=== PATIENT | female | born 1970 | race Caucasian/White ===

== ENCOUNTER 2023-10-27 08:24 | Emergency (ER) | payer OTHER, SELFPAY ==
--- NOTE | ~2023-10-27 | XR_ITS ---
EXAMINATION: XR foot LT min 3V DATE: 10/27/2023 08:54 INDICATION: Left foot injury. TECHNIQUE: 4 views of left foot were obtained. COMPARISON: None. FINDINGS: There is mild hallux valgus. No fracture. There is mild osteoarthritis of first metatarsoph alangeal joint and some of the interphalangeal joints. IMPRESSION: 1. Mild hallux valgus. 2. Mild polyarticular osteoarthritis. Reviewed, dictated and finalized at location A.
[2023-10-27 08:40] VITALS: PULSE 108; RESP 16; TEMP 36.6; O2SAT 100
--- NOTE | 2023-10-27 08:42 | ED.LOWEXIN ---
HPI - Extremity Injury (Lower) General Chief Complaint: Extremity Injury, Lower Stated Complaint: Fall Injury/Left Foot Time Seen by Provider: 10/27/23 08:52 Source: patient, RN notes reviewed and old records reviewed Mode of arrival: ambulatory Limitations: no limitations History of Present Illness HPI Narrative: 53 year old female who presents to [facility] with complaints of pain to her left foot which started this morning when she was trying to get in the car to go to work and the graduate research assistant was close to her car door. Patient proceeded to try to get into car and tripped over blower on side of graduate research assistant and fell. Patient reports that she heard a pop to left foot with pain to the medial and top of left foot at the base of toe region. Patient has no bruising or any acute swelling to her left foot,no obvious deformity. MD complaint: foot injury (left) Onset (ago): hour(s) (this morning) Injury: Left: foot Type of Injury: other (tripped and fell) Place: home Severity scale (1-10): 6 Related Data Home Medications Medication Instructions Recorded Confirmed BuSpar 10/27/23 venlafaxine 150 mg mg PO 10/27/23 capsule,extended release 24 hr Allergies Allergy/AdvReac Type Severity Reaction Status Date / Time No Known Allergies Allergy Unverified 10/28/16 17:59 Review of Systems Review of Systems: CONSTITUTIONAL: Denies fever, chills, or sweats. EYES: Denies visual changes, redness, or discharge. ENT: Denies rhinorrhea, congestion, sore throat, or otalgia. CARDIOVASCULAR: Denies chest pain, palpitations, or edema. RESPIRATORY: Denies cough or dyspnea. GASTROINTESTINAL: Denies abdominal pain, nausea, vomiting, or diarrhea. GENITOURINARY: Denies dysuria or hematuria. SKIN: Denies rash or itching. MUSCULOSKELETAL: Denies back pain,reports pain to the top and medial aspect of her left foot, or myalgia. NEUROLOGIC: Denies headache, numbness, or weakness. PSYCHIATRIC: Positive for history of anxiety or depression. All systems reviewed & are unremarkable except as noted in HPI and below PMFSH Past Medical History Medical History (Updated 10/28/23 @ 08:10 by Alma Delia Contreras NP) Anxiety and depression Surgical History Surgical History (Updated 10/27/23 @ 09:14 by Alma Delia Contreras NP) H/O: hysterectomy History of back surgery Social History Social History (Updated 10/27/23 @ 09:16 by Alma Delia Contreras NP) Smoking packs per day: 0.5 Smoking cigarettes per day: 10.0 Years smoked: 32 Smoking pack-years: 16.00 Smoking status: Current every day smoker Alcohol intake: current Alcohol use details: social Substance use type: does not use Living arrangements: with family Gender identity (if verbalized by the patient): Female Comments At time of signature, agree with nursing past medical, surgical, social and family history. There is no relevant family history pertinent to the presenting complaint Exam Narrative: GENERAL: Well-appearing, well-nourished, and in no acute distress. HEAD: Normocephalic, atraumatic. EYES: PERRLA and EOMI. ENT: Nares clear, no rhinorrhea or epistaxis. Mucous membranes moist.TMs normal throat pink with no swelling NECK: Supple.no lymphadenopathy CHEST: Clear to auscultation. No respiratory distress.SAO2 100% on room air HEART: Regular rate and rhythm. No murmur heard. Normal peripheral pulses. ABDOMEN: Soft, nontender, nondistended, normal active bowel sounds. EXTREMITIES: Normal range of motion. No edema. Pain to the medial and top of left foot at base of toes, no acute swelling or bruising noted. strong left foot pedal pulse present, foot warm and pink no obvious deformity noted, sensation is intact SKIN: Warm, dry, no rash. NEURO: No focal deficits. Alert and oriented x3. Course Course Emergency Course: Patient is aware of diagnosis, understands and agrees to treatment plan.? Anticipatory guidance given.? Patient agrees to follow-up as directed and i
[2023-10-27 09:08] VITALS: BP 147/90
== END 2023-10-27 09:29 | disposition home or self-care (01) ==
PROVIDERS: Emergency Provider Registered Nurse
DX: S93.602A Unspecified sprain of left foot, initial encounter (principal); W18.09XA Striking against other object with subsequent fall, initial encounter
CPT/HCPCS: 73630; 99203; G0463

== ENCOUNTER 2023-11-10 14:09 | Outpatient (CLI) | payer OTHER, SELFPAY ==
--- NOTE | ~2023-11-10 | MR_ITS ---
EXAMINATION: MR foot LT wo con DATE: 11/10/2023 14:44 INDICATION: Left foot pain TECHNIQUE: Magnetic resonance imaging (MRI) of the left fore/mid foot was performed without intraveno us contrast. Sequences included sagittal T1-weighted FSE, sagittal fluid sensitive FSE STIR, coronal PD-weighted FS FSE, coronal T1-weighted FSE, axial PD-weighted FS FSE, and axial PD-weighted FSE. COMPARISON: Left foot radiographs dated 10/27/2023 FINDINGS: 22 degrees hallux valgus. There is marrow edema surrounding a minimally distracted avulsion fracture involving the plantar lateral side of the medial cuneiform involving the footplate of the plantar com ponent of the Lisfranc ligament complex. There is a tear of the dorsal component of the ligament comp jaspreet. There is additional marrow edema surrounding a linear low signal intensity nondisplaced trabecul ar fracture line at the distal/lateral aspect of the cuboid underlying the distal articular surface c onsistent with an likely nutcracker type axial compression injury. On the sagittal images there appea rs to be intra-articular extension of fracture with up to 1 mm step-off along the articular cortex. L ikely additional nondisplaced fracture, potentially intra-articular involving the plantar base of the second metatarsal with marrow edema and apparent T2 hyperintense linear fracture line along the plan tar/medial cortex on the coronal series 8, images 31-33. There is additional mild marrow edema withou t evident fracture lines involving the lateral cuneiform. There is no evident subluxation of the meta tarsals along the Lisfranc joint. There is mild osteoarthritis at the first metatarsophalangeal and a few tarsal metatarsal and interphalangeal joints. Visualized portion of the flexor and extensor tend ons are normal. The collateral ligament complexes at the metatarsophalangeal and interphalangeal join ts are normal. There is diffuse soft tissue edema throughout the mid and forefoot. Intrinsic musculat ure is otherwise unremarkable. IMPRESSION: 1. Lisfranc ligament injury with tear of the dorsal component of the ligament and avulsion fracture i nvolving the medial cuneiform footplate of the plantar component of the ligament. No evident associat ed subluxation along the Lisfranc joint line 2. Nondisplaced intra-articular fracture at the lateral aspect of the distal articular surface of the cuboid. 3. Nondisplaced fracture, potentially intra-articular at the plantar base of the second metatarsal. Reviewed, dictated and finalized at location A. IMPRESSION: 1. Lisfranc ligament injury with tear of the dorsal component of the ligament a nd avulsion fracture involving the medial cuneiform footplate of the plantar co mponent of the ligament. No evident associated subluxation along the Lisfranc j oint line 2. Nondisplaced intra-articular fracture at the lateral aspect of the distal ar ticular surface of the cuboid. 3. Nondisplaced fracture, potentially intra-articular at the plantar base of th e second metatarsal.
== END 2023-11-10 14:10 ==
LOC: GOSHIMG 14:10
PROVIDERS: PCP Family Medicine; Visit Provider Family Medicine
DX: S92.242A Displaced fracture of medial cuneiform of left foot, initial encounter for closed fracture (principal); S92.215A Nondisplaced fracture of cuboid bone of left foot, initial encounter for closed fracture; S92.325A Nondisplaced fracture of second metatarsal bone, left foot, initial encounter for closed fracture; S93.622A Sprain of tarsometatarsal ligament of left foot, initial encounter; X58.XXXA Exposure to other specified factors, initial encounter
CPT/HCPCS: 73718

== ENCOUNTER 2023-11-15 10:55 | Outpatient (CLI) | payer OTHER, SELFPAY ==
--- NOTE | 2023-11-15 11:05 | ECG_ITS ---
SEE SCANNED COPY FOR CONFIRMED REPORT MTDD
== END 2023-11-15 10:56 | disposition home or self-care (01) ==
LOC: ANHCARD 10:56
PROVIDERS: PCP Family Medicine; Visit Provider Anesthesiology
DX: Z01.818 Encounter for other preprocedural examination (principal); E78.00 Pure hypercholesterolemia, unspecified
CPT/HCPCS: 93005

== ENCOUNTER 2023-11-17 03:51 | Day surgery (SDC) | payer OTHER, SELFPAY ==
[2023-11-14 10:51] VITALS: BMI 28.5
--- NOTE | 2023-11-14 11:09 | PC.NURSE ---
Report to the Outpatient Waiting Room, entrance under the green pavilion located off [facility], at time ___6:00AM____ on date __11/17/23 . Planned Procedure Time: __7:30AM . Time changes happen often and if your time is changed the preop area will call you the afternoon before. - You and your visitor will be asked to self-screen and do not enter if you have any COVID symptoms. - A mask is optional within the hospital at this time. Patients may have clear liquids (water, carbonated beverages, clear teas, apple juice) until 3 hours prior to surgery with a maximum of 20 ounces. - No food from midnight until time of surgery. Take the following medications with a SIP of water the morning of surgery: BUSPIRONE, VALACYCLOVIR, VENLAFAXINE. MAY TAKE ALPROZOLAM NEEDED. DO NOT STOP ANY OF YOUR OTHER PRESCRIPTION MEDICATIONS PRIOR TO SURGERY ?EXCEPT THE FOLLOWING Medications to discontinue per physician ____NONE Please no make-up, nail yoruba, hairspray, perfume, deodorant, or body powder the day of surgery. No jewelry (including any body piercings) or valuables the day of surgery, leave them at home. Please take a shower or bath the night before, or the morning of, surgery with an antibacterial soap. Wear comfortable, loose fitting clothing. - Jewelry must be removed prior to entering the operating room. Rings and piercings that are not removed may be cut off. - The hospital will not accept responsibility for valuables. - Please leave all valuables, including medications, at home the day of surgery. If you are going home after surgery, a licensed public transit trolley driver must drive you home. - NO public transportation without another adult if you receive anesthesia. - We recommend that an adult stay with you for 24 hours following discharge. - We also recommend that you do not drive, make important decision, drink alcoholic beverages, or take any drugs that were not prescribed by your health care provider for at least 24 hours after your discharge time. Follow any additional instructions given to you from your surgeon. If you or anyone in your household have experienced Covid symptoms in the past week, please notify your surgeon or the nurse liaison at the phone number below for possible testing. Telephone instructions given to ____PATIENT and asked if any additional questions and then verbalized understanding. Patient advised to call surgeon office or pre surgery nurse liaison [phone] if any additional questions.
[2023-11-17] VITALS (7 sets, daily range): BP systolic 109–134; BP diastolic 43–67; PULSE 84–104; RESP 14–26; TEMP 36.1–36.6; O2SAT 93–100
--- NOTE | ~2023-11-17 | XR_ITS ---
XR surgery orthopedic Indication: Intraoperative fixation of Lisfranc fracture TECHNIQUE: Fluoroscopy used during Intraoperative fixation of Lisfranc fracture performed by [Leonel Richardson MD] on 11/17/2023. 1 minute 9 seconds fluoroscopy with 6 fluoroscopic images captured. FINDINGS: Correlate with procedure note. IMPRESSION: Fluoroscopy used during Intraoperative fixation of Lisfranc fracture. Reviewed, dictated and finalized at location B. IMPRESSION: Fluoroscopy used during Intraoperative fixation of Lisfranc fractur e.
--- NOTE | 2023-11-17 07:07 | WPDANESEPPF ---
Anes - Initial Pre Proc Eval Procedure: Operation Date: 11/17/23 07:30 Proposed Procedures p Open Reduction Internal Fixation Left Foot Lisfranc Fracture - Omid Richardson MD Date/Time: 11/17/23 07:07 Surgeon: Omid Richardson MD Pre Op Diagnosis: left foot lis franc injury Patient Data Age: 53 Gender: F Height: 1.59 m Weight: 72 kg Allergies Allergy/AdvReac Type Severity Reaction Status Date / Time No Known Allergies Allergy Unverified 11/14/23 10:49 Home Medications Medication Instructions Recorded Confirmed Type venlafaxine 150 mg 150 mg PO QAM 10/27/23 11/14/23 History capsule,extended release 24 hr alprazolam 0.5 mg tablet (Xanax) 0.5 mg PO DAILY PRN Anxiety 11/12/23 11/14/23 History atorvastatin 10 mg tablet (Lipitor) 10 mg PO DAILY 11/12/23 11/14/23 History buspirone 15 mg tablet 15 mg PO QAM 11/12/23 11/14/23 History trazodone 100 mg tablet 100 mg PO QHS PRN Insomnia 11/12/23 11/14/23 History valacyclovir 500 mg tablet 500 mg PO DAILY 11/12/23 11/14/23 History Patient hx anesthesia problems: none Family hx anesthesia problems: none Results Review: All pre-operative results and documents have been reviewed as part of the pre-operative evaluation. [facility] Past Medical History Medical History (Updated 11/12/23 @ 14:01 by Omid Richardson MD) Anxiety and depression Lisfranc fracture Surgical History Surgical History H/O: hysterectomy History of back surgery Family History Family History Unknown Hypertension Heart disease Diabetes mellitus Social History Social History Social History: caffeine use Smoking packs per day: 1 Smoking cigarettes per day: 20.0 Years smoked: 34 Smoking pack-years: 34.00 Smoking status: Current every day smoker Tobacco type: cigarettes Alcohol intake: current Drinks per week: 4 Alcohol use details: social Substance use type: does not use Living arrangements: with family Additional living arrangements comments: [facility] Occupation/Education: occupation Additional occupation/education comments: RN [employer] Gender identity (if verbalized by the patient): Female Spiritual care concerns: No Anes - Eval Final PreProcedure Day of Procedure 11/17/23 07:07 Patient weight: normal Heart: regular rate and rhythm Lungs: clear to auscultation Airway: Mallampati scale class II Neurological: alert and oriented Last oral intake: >/= 8 hours ASA classification: II Emergent: no Anesthetic plan: proceed Anesthesia type and monitoring: general LMA and standard monitoring Results Review: All pre-operative results and documents have been reviewed as part of the pre-operative evaluation. Informed Consent: The patient's anesthetic plan and its attendant risks and benefits were discussed with the patient/family/POA. Questions were solicited and answers provided to the satisfaction of the patient/family/POA.
[2023-11-17] MEDS: KETOROLAC 15 MG/ML VIAL (*BKC) IV PUSH (07:10)
[2023-11-17] MEDS: LACTATED RINGERS 1,000 ML 30 ML IV CONT (07:10)
[2023-11-17] MEDS: ACETAMINOPHEN 500 MG TABLET 1000 MG PO (07:10)
--- NOTE | 2023-11-17 07:19 | WPDHPUPDATE1 ---
History and Physical Update Update Date/Time: 11/17/23 07:19 History and Physical has been reviewed, including an updated exam of the patient. There are NO changes in the patient's condition. Risks, benefits, and alternatives have been discussed and questions answered. Patient agrees to proceed with procedure.
--- NOTE | 2023-11-17 07:32 | P.OP_ITS ---
Procedure Note - Detailed Date of Procedure 11/17/23 Pre-op Diagnosis left foot lis franc injury Post-op Diagnosis Same Procedure Performed ORIF LT foot Lisfranc fx Surgeon Omid Richardson MD Chest Painting And Sealing Supervisor 1st assist Anesthesia General Indications 53-year-old who sustained if injury to the left foot and demonstrated Lisfranc fracture dislocation. Conservative treatment to allow for swelling to subside and now presents for operative treatment. Description of Procedure Patient identified in the preoperative holding. Informed consent given. Operative extremity marked. Patient received intravenous antibiotics. Patient brought to the operating room where underwent general anesthetic by anesthesia team. Positioned supine on operating room table. Time-out performed confirming the patient, site of the surgery and the plan. Left foot prepped draped usual sterile surgical fashion using a ChloraPrep skin solution. Foot and ankle exsanguinated and thigh tourniquet inflated to 250 mmHg. Local anesthetic with 0.5% Marcaine plain injected. Dorsal longitudinal incision made over the 2nd metatarsal cuneiform joint. Reduction then performed under direct visualization of the Lisfranc joint area and 2nd metatarsal cuneiform joint. The subluxation between the base of the 1st and 2nd metatarsal was reduced. Reduction was verified with image intensification. Fixation achieved with the Arthrex 2.7 mm tight rope which was placed from the medial cuneiform to the base of the 2nd metatarsal and secured. Image intensification confirmed reduction And placement of the fixation. stress was performed of the tarsometatarsal joint c omplex Lisfranc joint and noted to be stable. Wounds thoroughly irrigated fascia repaired with 2-0 Vicryl interrupted suture. Subcutaneous tissue repaired with 3-0 Monocryl interrupted suture and skin approximated with glue. Sterile dressing applied. The patient was then woken from anesthesia, extubated and taken to the recovery room in stable condition. All sponge, needle, instrument counts were correct at the end of the case. Implants Arthrex 2.7 mm tight rope implant. Estimated Blood Loss 5 Tourniquet Time Total Tourniquet Time: 45 Drains No Packing No Pathology None sent Complications None Condition Stable Disposition PACU [facility] Billing Surgery - Charge Forward: Surgery Billing ([id number])
[2023-11-17] MEDS: ceFAZolin 2 GM/D5W 50 ML 2 GM/50 ML BAG IVPB (07:34)
[2023-11-17] MEDS: BUPIVACAINE/EPINEPHRINE 0.5% 50 ML VIAL 15 ML INFILTRATE (08:18)
[2023-11-17] MEDS: oxyCODONE HCL (*CRX) 5 MG TAB IR PO (09:54)
== END 2023-11-17 10:32 | disposition home or self-care (01) ==
PROVIDERS: PCP Family Medicine; Visit Provider Orthopaedic Surgery
PROC: (CPT 28615; principal; 2023-11-17 07:30)
DX: S93.325A Dislocation of tarsometatarsal joint of left foot, initial encounter (principal); F41.8 Other specified anxiety disorders; W18.09XA Striking against other object with subsequent fall, initial encounter; F17.210 Nicotine dependence, cigarettes, uncomplicated; Z98.890 Other specified postprocedural states; Z98.1 Arthrodesis status; Z82.49 Family history of ischemic heart disease and other diseases of the circulatory system
CPT/HCPCS: 28615; 93005; 99199; A9270; J0690; J1100; J1885; J2250; J2405; J2704; J3010; J7120

== ENCOUNTER 2023-12-22 13:13 | Outpatient (CLI) | payer BC, SELFPAY ==
--- NOTE | ~2023-12-22 | XR_ITS ---
Left foot Technique: AP, oblique, and lateral views were obtained. Clinical History: Pain COMPARISON: 12/09/2023 Findings: No acute fracture or dislocation is seen. Subacute to chronic fracture deformity the base o f the second metatarsal noted. Probable postoperative change at the Lisfranc articulation. Osseous al ignment is anatomic. Joint spaces are preserved without erosive or degenerative change. Soft tissues are unremarkable. Impression: Status post Lisfranc ligament repair. Subacute to chronic fracture deformity the base of the second metatarsal. Reviewed, dictated and finalized at location M. Impression: Status post Lisfranc ligament repair. Subacute to chronic fracture deformity the base of the second metatarsal.
== END 2023-12-22 13:14 | disposition home or self-care (01) ==
LOC: ANHBWCIMG 13:15
PROVIDERS: PCP Family Medicine; Visit Provider Orthopaedic Surgery
DX: S92.322A Displaced fracture of second metatarsal bone, left foot, initial encounter for closed fracture (principal); Z98.890 Other specified postprocedural states; X58.XXXA Exposure to other specified factors, initial encounter
CPT/HCPCS: 73630

== ENCOUNTER 2024-01-05 13:34 | Outpatient (CLI) | payer BC, SELFPAY ==
--- NOTE | ~2024-01-05 | XR_ITS ---
EXAMINATION: XR foot LT min 3V DATE: 01/05/2024 13:46 INDICATION: Left foot fracture follow-up. TECHNIQUE: 4 views of left foot were obtained. COMPARISON: Left foot radiograph 12/22/2023, 10/27/2023 FINDINGS: There is mild hallux valgus. No acute fracture. There are radiopaque markers from Lisfranc ligament repair. Again seen is callus at lateral plantar aspect of base of second metatarsal. There i s mild osteoarthritis of first metatarsophalangeal joint and some of the interphalangeal joints and m idfoot joints. There are enthesophytes at the posterior and plantar aspects of calcaneal tuberosity. IMPRESSION: 1. Mild hallux valgus. 2. Mild polyarticular osteoarthritis. 3. Lisfranc ligament repair. Reviewed, dictated and finalized at location E.
== END 2024-01-05 13:35 | disposition home or self-care (01) ==
PROVIDERS: Visit Provider Orthopaedic Surgery
DX: M20.12 Hallux valgus (acquired), left foot (principal); M15.9 Polyosteoarthritis, unspecified; M79.672 Pain in left foot
CPT/HCPCS: 73630

== ENCOUNTER 2024-02-02 12:40 | Outpatient (CLI) | payer BC, SELFPAY ==
--- NOTE | ~2024-02-02 | XR_ITS ---
Left foot Technique: AP, oblique, and lateral views were obtained. Clinical History: Pain COMPARISON: 01/05/2024 Findings: No acute fracture or dislocation is seen. Osseous alignment is unchanged. Stable probable p ostoperative changes related to Lisfranc ligament repair. Soft tissues are unremarkable. Impression: Stable postoperative changes related to probable Lisfranc ligament repair. Osseous alignment is uncha nged. Reviewed, dictated and finalized at location M. Impression: Stable postoperative changes related to probable Lisfranc ligament repair. Osse ous alignment is unchanged.
== END 2024-02-02 12:41 | disposition home or self-care (01) ==
LOC: ANHBWCIMG 12:42
PROVIDERS: Visit Provider Orthopaedic Surgery
DX: M79.672 Pain in left foot (principal); Z98.890 Other specified postprocedural states
CPT/HCPCS: 73630

== ENCOUNTER 2024-03-01 12:40 | Outpatient (CLI) | payer BC, SELFPAY ==
--- NOTE | ~2024-03-01 | XR_ITS ---
XR foot LT min 3V Ordering provider: Omid Richardson MD History: . M79.672 - Pain in left foot . Comparison: February 02, 2024 FINDINGS: BONES: No acute fracture or dislocation. Lucency in the medial cuneiform bone is seen which may be degenerative or posttraumatic traumatic unc hanged. Early calcaneal spur. Small chip of bone is seen near to the cuboid bone.. JOINT SPACES: Normal. No tarsal coalition. SOFT TISSUES: Foreign bodies or postoperative changes are projected over the medial cuneiform bone an d base of the second metatarsal bone unchanged. IMPRESSION: No acute osseous abnormality left foot. Reviewed, dictated and finalized at location A.
== END 2024-03-01 12:41 | disposition home or self-care (01) ==
LOC: ANHBWCIMG 12:41
PROVIDERS: Visit Provider Orthopaedic Surgery
DX: M79.672 Pain in left foot (principal)
CPT/HCPCS: 73630

== ENCOUNTER 2024-05-10 12:25 | Outpatient (CLI) | payer BC, SELFPAY ==
--- NOTE | ~2024-05-10 | XR_ITS ---
Left foot Technique: AP, oblique, and lateral views were obtained. Clinical History: Pain COMPARISON: 03/01/2024 Findings: No acute fracture or dislocation is seen. Evidence of prior Lisfranc ligament repair surger y. Mild degenerative changes of the midfoot are present. Soft tissues are unremarkable. Impression: No acute abnormality. Stable evidence of prior Lisfranc ligament repair. Mild midfoot degenerative changes. Reviewed, dictated and finalized at location M. Impression: No acute abnormality. Stable evidence of prior Lisfranc ligament repair. Mild midfoot degenerative changes.
== END 2024-05-10 12:26 | disposition home or self-care (01) ==
LOC: ANHBWCIMG 12:26
PROVIDERS: Visit Provider Orthopaedic Surgery
DX: M19.072 Primary osteoarthritis, left ankle and foot (principal)
CPT/HCPCS: 73630